=== PATIENT | female | born 1990 | race Caucasian/White ===

== ENCOUNTER → 2022-03-11 09:12 | Outpatient (CLI) | payer OTHER, SELFPAY ==
--- NOTE | ~2022-03-11 | MMUS_ITS ---
EXAMINATION: MM diagnostic hardik BI w william, US breast RT limited HISTORY: Palpable lump in the upper outer quadrant of the right breast TECHNIQUE: Additional 3-D tomosynthesis images of the breasts were performed and synthetic 2-D images were generated. CAD analysis was submitted and interpreted. High resolution limited right breast ult rasound was performed. COMPARISON: None, baseline BREAST PARENCHYMAL COMPOSITION: There are scattered areas of fibroglandular density. FINDINGS: MAMMOGRAPHIC FINDINGS: There is a 6 mm x 4 mm oval, circumscribed, equal density mass in the posterior third of the upper-ou ter quadrant of the right breast at the 11:00 location 12.3 cm from the nipple corresponding to the p alpable abnormality of concern. No suspicious mass, calcification, or architectural distortion are id entified in the left breast. ULTRASOUND: There is a 5 mm x 4 mm, circumscribed, parallel, hypoechoic mass with apparent central echogenicity a t the 10:30 location 10 cm from the nipple corresponding to the palpable abnormality of concern. The mass demonstrates central vascularity and no posterior features. IMPRESSION: 1. Probable intramammary lymph node of the right breast corresponding to the palpable abnormality of concern. 2. Recommend 6 month follow-up targeted ultrasound of the right breast. BI-RADS category 3, probably benign findings. Reviewed, dictated and finalized at location A. IMPRESSION: 1. Probable intramammary lymph node of the right breast corresponding to the pa lpable abnormality of concern. 2. Recommend 6 month follow-up targeted ultrasound of the right breast. BI-RADS category 3, probably benign findings.
== END ==
PROVIDERS: PCP Nurse Practitioner; Visit Provider Advanced Practice Midwife
DX: N63.10 Unspecified lump in the right breast, unspecified quadrant (principal); R92.8 Other abnormal and inconclusive findings on diagnostic imaging of breast
CPT/HCPCS: 76642; 77062; 77066; G0279